=== PATIENT | female | born 1960 | race Caucasian/White ===

== ENCOUNTER 2019-03-14 15:04 | Inpatient (IN) | payer OTHER ==
[~2019-03-14] VITALS: Ht 167.6 cm; Wt 59.0 kg
[2019-03-15] MEDS ORDERED: magnesium hydroxide 30ml (MOM) UD suspension PO PRN (00:50)
[2019-03-15] MEDS ORDERED: loperamide 2mg capsule PO PRN (00:50)
[2019-03-15] MEDS ORDERED: mag hydrox/Alum hydrox/simeth 30ml oral suspension PO PRN (00:50)
[2019-03-15] MEDS ORDERED: acetaminophen 325mg tablet PO PRN (00:50)
[2019-03-15 01:00] VITALS: BP 108/66
[2019-03-15] MEDS ORDERED: polyethylene glycol 3350 17gm powd pack PO PRN (01:00)
[2019-03-15] MEDS ORDERED: NICOTINE POLACRILEX 2 MG LOZENGE BC PRN (01:20)
[2019-03-15] MEDS ORDERED: ASPI-1264 PO (01:22)
[2019-03-15] MEDS ORDERED: ESCI10TA54 PO (01:24)
[2019-03-15] MEDS ORDERED: FOLI0.4T2 PO (01:24)
[2019-03-15] MEDS ORDERED: OXYC-658 PO (01:28)
[2019-03-15] MEDS ORDERED: NICO-687 TOP (01:28)
[2019-03-15] MEDS ORDERED: MULT-933 PO (01:28)
[2019-03-15] MEDS ORDERED: THIA100T70 PO (01:32)
[2019-03-15] MEDS ORDERED: POLY17PO10 PO (01:32)
[2019-03-15] MEDS ORDERED: SENN-250 PO (01:32)
[2019-03-15] MEDS ORDERED: SODI88SP (01:33)
[2019-03-15] MEDS: oxyCODONE IR 5mg (immed. release) tablet PO PRN ×5 (01:34→19:27)
[2019-03-15] MEDS: acetaminophen 325mg tablet PO PRN ×3 (01:34→19:26)
--- NOTE | 2019-03-15 03:20 | NUR ---
ADMIT NOTE: Pt arrived on unit at 0030 via transportation of a gurney. Pt able to stand and ambulate independently. 2 RN skin assessment completed by this pattern chart writer and EMMANUEL Guzman. See chart for left arm and ankle wound pictures. Pt's belongings inventoried by ANDREA Hopson. Pt attempted suicide by cutting left wrist, arm and ankle with a box bender. Repairs made to cuts via surgery. Pt has 1/2 cast to left forearm. Pt reports attempting suicide due to fight with . Pt also reports depression since 2004. Pt has a hx of ETOH, drinks 3-6 beers/ day. CIWA q8h.
--- NOTE | 2019-03-15 05:10 | NUR ---
Monitor pt's left arm/hand. Pt needs to be reminded to keep arm elevated to help increase circulation. Fingers are noticeable cyanotic and swollen when arm not elevated.
[2019-03-15] MEDS: sennosides/docusate sodium tablet PO SCH ×2 (07:50→19:24)
[2019-03-15] MEDS: multivitamins, therapeutics tablet PO SCH (07:51)
[2019-03-15] MEDS: folic acid 1mg tablet PO SCH (07:52)
[2019-03-15] MEDS: thiamine 100mg tablet PO SCH (07:52)
[2019-03-15] MEDS: aspirin 325mg tablet PO SCH (07:53)
[2019-03-15] MEDS: ESCITALOPRAM OXALATE 5 MG TABLET PO SCH (07:53)
[2019-03-15] MEDS: nicotine 14mg patch - 24hr TD SCH (07:55)
[2019-03-15] MEDS: morphine 2 MG/ML inj. syringe IV PRN ×2 (11:23→16:11)
[2019-03-15] MEDS: ceFAZolin 1GM/D5W- ADD-VANTAGE 50 ML IV SCH ×2 (11:43→16:40)
[2019-03-15 12:01] LABS: BASOPHILS % (AUTO) 0.4 % (0-1); EOSINOPHILS % (AUTO) 0.3 % (0-6); HEMATOCRIT 22.3 % (35.0-45.0); HEMOGLOBIN 7.7 g/dl (12.0-16.0); LYMPHOCYTES # (AUTO) 1.3 X10'3 (1.1-4.8); LYMPHOCYTES % (AUTO) 13.6 % (21-51); MEAN CORPUSCULAR HEMOGLOBIN 33.3 PG (27.0-31.0); MEAN CORPUSCULAR HGB CONC 34.5 g/dL (33.0-36.5); MEAN CORPUSCULAR VOLUME 96.5 FL (78-98); MEAN PLATELET VOLUME 8.8 FL (7.4-10.4); MONOCYTES # (AUTO) 0.9 X10'3 (0-0.9); MONOCYTES % (AUTO) 9.6 % (2-12); NEUTROPHILS % (AUTO) 76.1 % (42-75); PLATELET COUNT 236 X10'3 (140-440); RED BLOOD COUNT 2.31 X10'6 (4.20-5.60); RED CELL DISTRIBUTION WIDTH 13.1 % (11.5-14.5); WHITE BLOOD COUNT 9.2 X10'3 (4.5-11.0)
--- NOTE | 2019-03-15 14:13 | NUR ---
WOUND INFECTION EDUCATION PROVIDED BY WOUND CARE 1. Patient instructed to call their primary doctor, or go the ED immediately if any of the following symptoms occur: * Increased pain in wound * Increase in drainage from the wound * Redness in the skin surrounding the wound * Warmth in the skin surrounding the wound * Bleeding from the wound * Temperature of 101 or greater 2. If any of these occur while in the hospital tell a nurse immediately. Addendum: 03/15/19 at 1414 by Sharron Chung RN Amended: Links added.
--- NOTE | 2019-03-15 15:30 | NUR ---
Malnutrition/Wound consult received. Patient has a surgical wound to her left arm d/t surgical repair from cut; patient has cast over arm. Pending [facility] consult. One meal eaten so far, documented 100% PO of protein. Patient likely able to meet needs for wound healing with 75-100% PO intake of her meals. She reports not eating well d/t poor self care. Reports weight loss of 14-23 lbs recently. No past weight history. Has left hand non pitting 2+ edema d/t injury. No malnutrition at this time. Recommend: 1. Continue regular diet 2. bowel care as needed 3. weekly weights Addendum: 03/15/19 at [address] Amended: Links added.
--- NOTE | 2019-03-15 17:30 | NUR ---
Nursing Progress Note: Legal hold: 5150 Client on involuntary status for DTS Report received from EMMANUEL Mccullough with use of SBAR Why are they here: 58 y.o. female with past medical hx of undiagnosed depression brought to [facility] by ambulance on 03.09 with self-inflicted wound with a box turner to left forearm and leg. Pt. reportedly sent pictures of her wounds to her who then called EMS. Patient endorses symptoms of depression since 2012. Patient endorsed regret that she failed in her attempt. Assessment Pt. awake at start of shift. Pt ate breakfast in community room and took all medications. 1:1 done at bedside. Pt. very tearful about cutting her wrist up, stating, "i've messed myself up so badly". Pt. denies SI/HI, A/V H. Pt. given OxyIR for lacerations to left arm and wrist. Wound care nurse assessed pt. see chart for wound care instructions. Wounds assessed, pt. has multiple wounds starting from top of her left hand, to her left wrist, to her left AC as well as her left ankle. Wounds have good approximation and have moderate, serosangeounes drainage with no signs of infection. Pt.'s wrist appears to have much ecchymosis with blisters that are intact with fluid. Nursing is to monitor the blisters for rupture. Left hand is is echymotic left with non pitting 2+ edema, pt. c/o of numbness in fingers, capillary refil is 2 seconds. Pt. has sling and is to keep hand elevated. Hospitalist saw pt. and ordered saline lock for IV antibiotics q8hrs, morphine 2mg IV push q4 hrs PRN and wound culture of left wrist. Pt. received another dose of OxyIR in the morning and a dose in the afternoon. Pt. received IV push Morphine x2. CIWA socre of 2 and 1 and pt.'s provider D/C'd in the afternoon. S/I, H/I: Denies A/VH: Denies Sleep: Pt. napped x2 today. ADL's: Pt. is independent. Group attendance: Yes Were meds taken: Yes Any med S/E: None reported nor observed Mental Status Exam Appearance: Pt. appears clean in civilian clothes and arm brace. Behavior: Pt. isolate to room due to pain but does socialize appropriately during meals and group. Eye Contact: Speech: Soft spoken, normal rate and rhythm. Mood: Depressed, tearful at times. Affect: congruent with affect. Thought process: Linear Thought Content: regretful over suicide attempt. Cognition: A&Ox4 Insight: Fair Judgment: Fair Interventions PRN's used: OxyIRx3, Morphine IVP x2. Therapeutic interventions: 1:1 therapeutic assessment, maintained safe therapeutic milieu, provided active listening with positive reinforcement, provided medication administration/education/monitoring as needed; Q15 safety checks. Restraints/seclusion/emergency medication: N/A Justification of Continued Inpatient Treatment: Continued therapeutic support and medication management needed to provide stabilization, prevent decompensation, improve coping mechanisms decreasing risk to patient and re-admittance
[2019-03-15 19:47] VITALS: BP 102/60
--- NOTE | 2019-03-15 21:59 | NUR ---
Nursing Progress Note: Legal hold: 5150 Client on involuntary status for DTS Report received from EMMANUEL Santamaria with use of SBAR Why are they here: 58 y.o. female with past medical hx of undiagnosed depression brought to [facility] by ambulance on 03.09 with self-inflicted wound with a box car checker to left forearm and leg. Pt. reportedly sent pictures of her wounds to her who then called EMS. Patient endorses symptoms of depression since 2012. Patient endorsed regret that she failed in her attempt. Assessment What happened this shift? Patient in bed at change of shift. she is alert and oriented, she reports 6/10 pain in left arm. Left hand 2+ nonpitting edema, capillary refill 2 sec, arm elevated as ordered. 1:1 assessment completed at bedside. Patient denied SI/HI, denies AH/VH. Patient denies depression this shift. Patient's main complaint this evening is getting her pain under control. Oxy IR and tylenol administered per patient's request with good effect. Patient reported 2/10 pain when reassessed. Patient is compliant for HS meds. Will continue to monitor patient's left arm and keep it elevated. S/I, H/I: Denies A/VH: Denies Sleep: Pt. currently sleeping, see sleep assessment. ADL's: Pt. is independent. Group attendance: No groups this shift. Were meds taken: Yes Any med S/E: None reported nor observed Mental Status Exam Appearance: Pt. well groomed, hair brushed. Behavior: Pt. keeps to room due to pain IV antibiotics, remains social when out of room. Eye Contact: Direct Speech: Soft spoken, normal rate and rhythm. Mood: Depressed Affect: congruent with mood. Thought process: Linear Thought Content: focused on pain management. Cognition: A&Ox4 Insight: Fair Judgment: Fair Interventions PRN's used: OxyIRx3, tylenol. Therapeutic interventions: 1:1 therapeutic assessment, maintained safe therapeutic milieu, provided active listening with positive reinforcement, provided medication administration/education/monitoring as needed; Q15 safety checks. Restraints/seclusion/emergency medication: N/A Justification of Continued Inpatient Treatment: Continued therapeutic support and medication management needed to provide stabilization, prevent decompensation, improve coping mechanisms decreasing risk to patient and re-admittance
[2019-03-16] MEDS: oxyCODONE IR 5mg (immed. release) tablet PO PRN ×4 (00:34→18:28)
[2019-03-16] MEDS: ceFAZolin 1GM/D5W- ADD-VANTAGE 50 ML IV SCH ×3 (00:34→16:29)
[2019-03-16] MEDS: morphine 2 MG/ML inj. syringe IV PRN ×3 (06:56→17:01)
[2019-03-16 07:34] VITALS: BP 107/68
[2019-03-16 08:01] LABS: CHOL/HDL RATIO 7.5 (0.00-4.99); CHOLESTEROL 112 MG/DL (0-200); HDL CHOLESTEROL 15 MG/DL (35-60); LDL CHOLESTEROL 60 MG/DL (50-100); TRIGLYCERIDES 85 MG/DL (20-135)
[2019-03-16] MEDS: multivitamins, therapeutics tablet PO SCH (08:23)
[2019-03-16] MEDS: aspirin 325mg tablet PO SCH (08:24)
[2019-03-16] MEDS: folic acid 1mg tablet PO SCH (08:24)
[2019-03-16] MEDS: thiamine 100mg tablet PO SCH (08:24)
[2019-03-16] MEDS: ESCITALOPRAM OXALATE 5 MG TABLET PO SCH (08:25)
[2019-03-16] MEDS: nicotine 14mg patch - 24hr TD SCH (08:26)
[2019-03-16] MEDS: sennosides/docusate sodium tablet PO SCH ×2 (08:26→21:02)
[2019-03-16 08:49] LABS: HEMOGLOBIN A1C 5.2 % (4.5-6.2)
[2019-03-16] MEDS: acetaminophen 325mg tablet PO PRN ×2 (14:17→21:21)
--- NOTE | 2019-03-16 17:51 | NUR ---
Nursing Progress Note: Legal hold: 5150 Client on involuntary status for DTS Report received from Shasta Ortez RN with use of SBAR Why are they here: 58 y.o. female with past medical hx of undiagnosed depression brought to [facility] by ambulance on 03.09 with self-inflicted wound with a safety deposit boxes custodian to left forearm and leg. Pt. reportedly sent pictures of her wounds to her who then called EMS. Patient endorses symptoms of depression since 2012. Patient endorsed regret that she failed in her attempt. Assessment What happened this shift? Pt. awake at start of shift requesting pain medication for 03/07 arm pain. Pt. given Morphine 2mg IV push with good effect. Pt ate breakfast, took medications, and showered this AM. Pt.'s wounds assessed: Left arm and hand Dressing changed today after patient showered. Wound is well approximated, sutures in place, pt. has less swelling than yesterday, hand is less purple today and more pink. Hand has 2+ non-pitting edema. Wound has moderate drainage that is dried blood by the wrist and serosangeouneous throughout.Wound sprayed with wound cleanser and irrigated with NS, dried, and emulsified bandage applied and wound wrapped and secured with tape. Pt.'s left ankle wound Noted well-approximated surgical incision with sutures in place. Wound spray applied and cleansed with NS and dried. Covered suture line with oil emulsion dressing, and covered with Composite island dressing. Pain management remains pt.'s priority. Pt. received Morphine IV push x3 and OxyIR po x2 with good effect. Pt. continues to receive Ancef q8hrs IV. Pt. also received Tylenol 650mg for headache. In the afternoon pt. walked the halls with IV pole. Pt. given milk of magnesia for constipation. Pt.'s provider was concerned regarding pt.'s low CBC, HGB, and HCT. RN paged hospitalist and informed. CBC ordered for tomorrow AM. Pt. receiving IV Ancef q8Hrs. Pt. reports reports she is remorseful over her suicide attempt. She became tearful as she said it's her 's birthday tomorrow and felt bad about celebrating it while she was in the hospital. Pt. reports her is coming tonight to visit from [facility]. S/I, H/I: Denies A/VH: Denies Sleep: Pt. napped x2 ADL's: Pt. is independent. Group attendance: Yes Were meds taken: Yes Any med S/E: None reported nor observed Mental Status Exam Appearance: Pt. well groomed, hair brushed. Behavior: Pt. interacts appropriately but retires to room due to arm pain. Eye Contact: Direct Speech: Soft spoken, normal rate and rhythm. Mood: Depressed Affect: congruent with mood. Thought process: Linear Thought Content: focused on pain management. Cognition: A&Ox4 Insight: Fair Judgment: Fair Interventions PRN's used: Morphine IV pushx3, OxyIRx2, tylenolx1. Therapeutic interventions: 1:1 therapeutic assessment, maintained safe therapeutic milieu, provided active listening with positive reinforcement, provided medication administration/education/monitoring as needed; Q15 safety checks. Restraints/seclusion/emergency medication: N/A Justification of Continued Inpatient Treatment: Continued therapeutic support and medication management needed to provide stabilization, prevent decompensation, improve coping mechanisms decreasing risk to patient and re-admittance
[2019-03-16] MEDS: JUVEN Shake w/Arg/Glut/Ca2+Bmb (Juven 19.3gm) pkt 240ml PO SCH (18:04)
[2019-03-16 20:13] VITALS: BP_SYST 101
[2019-03-17] MEDS: ceFAZolin 1GM/D5W- ADD-VANTAGE 50 ML IV SCH ×2 (00:36→09:30)
[2019-03-17] MEDS: oxyCODONE IR 5mg (immed. release) tablet PO PRN ×2 (00:36→05:54)
--- NOTE | 2019-03-17 01:36 | NUR ---
Nursing Progress Note: Legal hold: 5150 Client on involuntary status for DTS Report received from EMMANUEL Santamaria with use of SBAR Why are they here: 58 y.o. female with past medical hx of undiagnosed depression brought to [facility] by ambulance on 03.09 with self-inflicted wound with a box toe buffer to left forearm and leg. Pt. reportedly sent pictures of her wounds to her who then called EMS. Patient endorses symptoms of depression since 2012. Patient endorsed regret that she failed in her attempt. Assessment What happened this shift? Patient in bed at change of shift. She reports 5/10 pain and is given Tylenol for break through pain with good effect. Wound dressing to left arm is CDI with no drainage noted, dated 03/16/19. Patients arm elevated and her fingers are pink, capillary refill is slowed in her left hand at 2 seconds. Her inner left ankle dressing is CDI with no drainage or odor noted and is dated 03/16/19. Patients IV is 22guage to R. forearm it is asymptomatic and patent. Patients goal is to control pain, walk, and work on her incentive spirometer to promote healing. She is tearful explaining what happened and how she is remorseful about her SI attempt. She reports "I don't want to , I want to live." and talked about her family, her grandchildren and the want to start therapy so she can get better and work through her personal things. Patient is goal oriented. Her visits this evening and the patient reports that the visit went well and that she is looking forward to him visiting before he goes back home tomorrow. She is compliant with HS medications. S/I, H/I: Denies A/VH: Denies Sleep: Currently sleeping, see sleep assessment. ADL's: Independent. Group attendance: No groups this shift. Were meds taken: Yes Any med S/E: None reported nor observed Mental Status Exam Appearance: Pt. well groomed, hair brushed. Behavior: Pt. keeps to room due to pain IV antibiotics, remains social when out of room. Eye Contact: Direct Speech: Soft spoken, normal rate and rhythm. Mood: Depressed, remorseful about her actions Affect: Congruent with mood. Thought process: Linear Thought Content: Focused on pain management, goal oriented about starting therapy and working through her depression and healing process. Cognition: A&Ox4 Insight: Fair Judgment: Fair Interventions PRN's used: OxyIR x1, Tylenol. Therapeutic interventions: 1:1 therapeutic assessment, maintained safe therapeutic milieu, provided active listening with positive reinforcement, provided medication administration/education/monitoring as needed; Q15 safety checks. Restraints/seclusion/emergency medication: N/A Justification of Continued Inpatient Treatment: Continued therapeutic support and medication management needed to provide stabilization, prevent decompensation, improve coping mechanisms decreasing risk to patient and re-admittance
[2019-03-17 07:35] LABS: BASOPHILS % (AUTO) 0.3 % (0-1); EOSINOPHILS % (AUTO) 0.2 % (0-6); HEMATOCRIT 23.7 % (35.0-45.0); LYMPHOCYTES # (AUTO) 1.1 X10'3 (1.1-4.8); LYMPHOCYTES % (AUTO) 9.8 % (21-51); MEAN CORPUSCULAR HEMOGLOBIN 32.8 PG (27.0-31.0); MEAN CORPUSCULAR HGB CONC 33.8 g/dL (33.0-36.5); MEAN CORPUSCULAR VOLUME 96.9 FL (78-98); MEAN PLATELET VOLUME 8.8 FL (7.4-10.4); MONOCYTES # (AUTO) 0.8 X10'3 (0-0.9); MONOCYTES % (AUTO) 7.1 % (2-12); NEUTROPHILS # (AUTO) 9.5 X10'3 (1.8-7.7); NEUTROPHILS % (AUTO) 82.6 % (42-75); PLATELET COUNT 353 X10'3 (140-440); RED BLOOD COUNT 2.45 X10'6 (4.20-5.60); RED CELL DISTRIBUTION WIDTH 13.5 % (11.5-14.5); WHITE BLOOD COUNT 11.5 X10'3 (4.5-11.0)
[2019-03-17 07:56] VITALS: BP 104/67
[2019-03-17] MEDS: folic acid 1mg tablet PO SCH (08:23)
[2019-03-17] MEDS: aspirin 325mg tablet PO SCH (08:23)
[2019-03-17] MEDS: multivitamins, therapeutics tablet PO SCH (08:23)
[2019-03-17] MEDS: JUVEN Shake w/Arg/Glut/Ca2+Bmb (Juven 19.3gm) pkt 240ml PO SCH ×2 (08:23→13:39)
[2019-03-17] MEDS: ESCITALOPRAM OXALATE 5 MG TABLET PO SCH (08:24)
[2019-03-17] MEDS: sennosides/docusate sodium tablet PO SCH (08:24)
[2019-03-17] MEDS: thiamine 100mg tablet PO SCH (08:25)
[2019-03-17] MEDS: nicotine 14mg patch - 24hr TD SCH (08:29)
[2019-03-17] MEDS: morphine 2 MG/ML inj. syringe IV PRN (11:51)
[2019-03-17] MEDS ORDERED: NICO-687 TOP (12:28)
[2019-03-17] MEDS ORDERED: OXYC-658 PO (12:28)
[2019-03-17] MEDS ORDERED: ESCI5TAB PO (12:28)
[2019-03-17] MEDS ORDERED: CEPH500C5 PO (12:50)
--- NOTE | 2019-03-17 15:22 | NUR ---
Nursing Discharge Note: Pt was discharged from [facility] @ [id number] with her who will be driving her back to their home in [facility]. Pt remorseful r/t cutting self and wants to live and denied SI. She has been improving since admission and was in no acute physical or emotional distress. Her valuables were inventoried and returned to her. Pt received nicitine replacement and will be making f/u appointments in home [facility]. Discharge instructions reviewed and understood by Pt.
[2019-03-17] MEDS ORDERED: cephalexin 500mg capsule PO SCH (16:00)
== END 2019-03-17 13:51 | disposition home or self-care (01) | DRG 885 ==
LOC: ADULT MH 03-15 00:15
PROVIDERS: ADMIT Psychiatry & Neurology Psychiatry; ATTEND Psychiatry & Neurology Psychiatry
DX: F33.2 Major depressive disorder, recurrent severe without psychotic features (principal); S51.812A Laceration without foreign body of left forearm, initial encounter; T14.91XA Suicide attempt, initial encounter; F17.200 Nicotine dependence, unspecified, uncomplicated; Z79.899 Other long term (current) drug therapy; X83.8XXA Intentional self-harm by other specified means, initial encounter; Y93.89 Activity, other specified; Y92.89 Other specified places as the place of occurrence of the external cause; Y99.8 Other external cause status
CPT/HCPCS: 36415; 80061; 83036; 85025; 87070; 87081; J0690; J2270